=== PATIENT | female | born 1960 | race Caucasian/White ===

== ENCOUNTER → 2022-06-14 | Outpatient (CLI) | payer OTHER, SELFPAY ==
--- NOTE | 2022-06-14 13:58 | CDU_ITS ---
Reason For Study: Carotid bruit Rt. Velocities/BP Lt. Velocities/BP Prox CCA 79.5/20.1 cm/sec. Prox CCA 84.4/17.3 cm/sec. Mid CCA 81.7/19 cm/sec. Mid CCA 79.6/23 cm/sec. Dist CCA 56.4/19 cm/sec. Dist CCA 82.5/24.8 cm/sec. Prox ICA 67.4/21.2 cm/sec. Prox ICA 59.8/23 cm/sec. Mid ICA 85/30 cm/sec. Mid ICA 85.3/30.5 cm/sec. Dist ICA 90.9/27.1 cm/sec. Dist ICA 79.6/31.5 cm/sec. Rt. ICA/CCA = 1.14. Lt. ICA/CCA = 1.03. Prox ECA 67.4/6.9 cm/sec. Prox ECA 58.9/9.7 cm/sec. Rt. Vert. 63.6/14.5 cm/sec. Lt. Vert. 55.1/15.4 cm/sec. Right Extracranial There is homogeneous, smooth atherosclerotic plaque noted in the right common carotid artery. There is heterogeneous, smooth atherosclerotic plaque noted in the right internal carotid artery. There is heterogeneous, irregular atherosclerotic plaque noted in the right external carotid artery. Antegrade flow is noted in the right vertebral artery. Left Extracranial There is homogeneous, smooth atherosclerotic plaque noted in the left common carotid artery. There is homogeneous, smooth atherosclerotic plaque noted in the left internal carotid artery. There is intimal thickening but no significant atherosclerotic plaque noted in the left external carotid artery. Antegrade flow is noted in the left vertebral artery. Procedure Carotid Duplex 13529. This is a Carotid Duplex examination using B-mode, color flow and specral Doppler. Exam performed in department. VL/Carotid Duplex Ultrasound Interpretation Summary Mild (<50%) stenosis right extracranial internal carotid. Mild (<50%) stenosis left extracranial internal carotid. Patent and antegrade vertebrals bilaterally. Ordering Physician: Dayna Anderson Referring Physician: Everett Rosa Performed By: Marissa Ward RVT
--- NOTE | 2022-06-14 13:58 | VDLE_ITS ---
Reason For Study: Pain RIGHT LEFT CFV is compressible, spontaneous, phasic, CFV is compressible, spontaneous, phasic, competent and demonstrates normal competent, and demonstrates normal augmentation. augmentation. FV is compressible, spontaneous, phasic, FV is compressible, spontaneous, phasic, competent and demonstrates normal competent and demonstrates normal augmentation. augmentation. POP V is compressible, spontaneous, phasic, POP V is compressible, spontaneous, phasic, competent and demonstrates normal competent and demonstrates normal augmentation. augmentation. T/P Trunk is compressible. T/P Trunk is compressible. PTV is compressible. PTV is compressible. RT PerV is compressible. LT PerV is compressible. Previous GSV stripping. Previous GSV from junction to knee stripped. Small segment of GSV from knee to prox calf GSV proximal calf measures 0.35 x 0.31 cm. is INCOMPETENT for greater than 0.5 seconds GSV below knee is INCOMPETENT for greater and measures 0.22 x 0.22 cm than 0.5 seconds. ASV at mid calf is INCOMPETENT for greater Vein of Giacomini is INCOMPETENT for greater than 0.5 seconds and measures 0.20 x 0.21 cm, than 0.5 seconds and measures 0.22 x 0.22 cm. connects to remaining distal GSV. ASV mid thigh is INCOMPETENT for greater than SSV proximal calf is INCOMPETENT for greater 0.5 seconds and measures 0.27 x 0.27 cm. than 0.5 seconds and measures 0.24 x 0.23 cm. SSV proximal calf is INCOMPETENT for greater Procedure than 0.5 seconds and measures 0.19 x 0.19 cm. This is a venous duplex using B-mode, color flow and spectral Doppler. Exam performed in department. Patient was scanned in reverse Trendelenburg position during reflux assessment. VL/Venous Duplex US - Jose Extrem Interpretation Summary Deep veins of the bilateral lower extremities are patent and compressible segme ntally. There is no evidence of bilateral lower extremity deep vein thrombosis. Previous great saphenous stripping bilateral Positive for reflux in remnant right great saphenous vein, right accessory saph enous vein, right small saphenous vein. Positive for reflux in remnant left great saphenous vein, left accessory saphen ous vein, left small saphenous vein, and left vein of Giacomini Ordering Physician: Dayna Anderson Referring Physician: Everett Rosa Performed By: Marissa Ward RVT
== END | disposition home or self-care (01) ==
PROVIDERS: PCP Internal Medicine; Referring Provider Physician Assistant; Visit Provider Physician Assistant
DX: R09.89 Other specified symptoms and signs involving the circulatory and respiratory systems (principal); Z86.718 Personal history of other venous thrombosis and embolism; M79.604 Pain in right leg; M79.89 Other specified soft tissue disorders
CPT/HCPCS: 93880; 93970

== ENCOUNTER 2024-04-28 09:00 | Outpatient (RCR) | payer OTHER, SELFPAY ==
--- NOTE | 2024-04-21 09:43 | HP.PTEVAL ---
Patient's Visit Information Visit Information Visit Information: MARCO SCOTT is a 63 year old F referred to Physical Therapy by Dr. Everett Rosa MD with a diagnosis of BPPV. Date of Evaluation: 04/21/24 Physical Therapist: CLEVELAND Harris Visit Plan Frequency: 1-2x /Week Duration: 4 Weeks Plan: 1-2X/ week for 4 weeks for positional repositioning for positive L Hallpike, testing and treatments of balance and possible VOR if deficits persist with HEP Subjective Subjective: For about 4 weeks she had a dizzy spell at work and blew it off and then a few days later it happened again and thought it had to due with decrease in mensuration. As soon as she would lay down on her L side she would spin and she would just get up quick and it would stop. She has not slept on that side and got through the Holidays and it was a rough flight and her said she had to go to the Dr. She went to the ER per her Dr and they said she had BPPV and she has been taking meclizine since Apr 16. The meclizine really helped. She did not take them for 8 hours and it came back. She has ringing in the L ear possibly the R. She gets off feeling when she looks to the L. She has a cloud in her head all the time and not able to go back to work. She did not take the meclizine this morning Objective Objective: + L Hallpike for dizziness and torsional nystagmus that started slow and lasted approx 45 seconds. Went right into treated with L EPLY Re tested L Hallpike and was negative for nystagmus and dizziness When pt stood up she had a whoosh of dizziness and had to sit down. She was able to walk out with no dizziness or distress Advised pt to not look down the rest of the day for prolong periods and will need to re-check to make sure it is gone. Balance/Special Test Scores Dizziness Score: 24 Goals Goal 1:: I HEP Goal Time Frame: 4-6 Weeks Goal 2:: Test balance to make sure no persistent balance deficits once BPPV is no longer positive (FGA/CATSIB) Goal Time Frame: 4-6 Weeks Goal 3:: Abolish dizziness with rolling to the L side in bed and turning head to the L in sitting Goal Time Frame: 4-6 Weeks Rehabilitation Potential Rehabilitation Potential: Good Anticipated Interventions Patient/Client Instruction: Educate patient on: Condition and Plan of Care For the Purpose of:: To improve nutrient delivery to tissue, To improve muscle performance and motor function, To improve ability to perform ADL's, To increase tolerance to activity/condition/position, To improve performance and independence with ADL's, To improve ability of physical actions for home/community/work/leisure, To improve gait and locomotor functions, To improve balance, To improve safety with gait and To assume or resume ADL's Therapeutic Exercise to Include: Strength training, Endurance training, Balance training, Gait and locomotor training and Neuromotor development For the Purpose of:: To improve nutrient delivery to tissue, To improve ability to perform ADL's, To increase tolerance to activity/condition/position, To improve gait and locomotor functions, To increase flexibility/ROM, To improve endurance, To improve balance and To improve safety with gait Functional Training to Include: Gait training For the Purpose of:: To improve gait and locomotor functions and To improve safety with gait Text: Thank you for the opportunity to evaluate your patient. For Medicare and Medicare HMO plans, please review the plan of care and approve it. It will need to be FAXED BACK to us at [phone] for Medicare purposes. For Medicare only, by signing this I certify the plan of care. Please let me know if there are questions or concerns regarding this plan of care. Physician Signature: Date:
--- NOTE | 2024-09-29 08:39 | HP.PT.NRP ---
Patient Information Patient Information: MARCO SCOTT was seen in my office for initial evaluation on 04/21/24. The following Plan of Care was established for this patient: POC Established Initial Frequency: 1-2x /Week Initial Duration: 4 Weeks Anticipated Interventions Patient/Client Instruction: Educate patient on: Condition and Plan of Care For the Purpose of:: To improve nutrient delivery to tissue, To improve muscle performance and motor function, To improve ability to perform ADL's, To increase tolerance to activity/condition/position, To improve performance and independence with ADL's, To improve ability of physical actions for home/community/work/leisure, To improve gait and locomotor functions, To improve balance, To improve safety with gait and To assume or resume ADL's Therapeutic Exercise to Include: Strength training, Endurance training, Balance training, Gait and locomotor training and Neuromotor development For the Purpose of:: To improve nutrient delivery to tissue, To improve ability to perform ADL's, To increase tolerance to activity/condition/position, To improve gait and locomotor functions, To increase flexibility/ROM, To improve endurance, To improve balance and To improve safety with gait Functional Training to Include: Gait training For the Purpose of:: To improve gait and locomotor functions and To improve safety with gait Last Seen Last Seen: This patient was last seen in our office 04/28/24. Pertinent comments regarding their Physical therapy will appear below: [facility] PT At this point I will be discontinuing this patient from physical therapy. I would be happy to see this patient again in the future if found appropriate by the physician. Thank you! Ashley Porras, MPT Balance/Gait/Functional tests Balance/Special Test Scores Dizziness Score: 24
== END 2024-04-28 19:00 | disposition home or self-care (01) ==
LOC: PT 09:00
PROVIDERS: PCP Internal Medicine; Referring Provider Internal Medicine; Visit Provider Internal Medicine
DX: H81.10 Benign paroxysmal vertigo, unspecified ear (principal)
CPT/HCPCS: 97110; 97161